=== PATIENT | male | born 1965 | race Caucasian/White ===

== ENCOUNTER → 2018-01-18 | Outpatient (CLI) | payer OTHER ==
[2018-01-18 09:56] LABS: INR 1.2; PROTIME 11.5 Seconds (9.20-11.50)
== END ==
LOC: M.LAB 03:15
PROVIDERS: Anesthesiology
DX: R79.1 Abnormal coagulation profile (principal)

== ENCOUNTER → 2018-08-20 | Outpatient (CLI) | payer OTHER ==
[2018-08-20 14:15] LABS: INR 1.2; PROTIME 11.9 Seconds (9.20-11.50)
== END ==
LOC: M.LAB 01:03
PROVIDERS: Anesthesiology
DX: Z79.01 Long term (current) use of anticoagulants (principal)

== ENCOUNTER → 2019-08-15 | Outpatient (CLI) | payer OTHER ==
[2019-08-15 09:24] LABS: INR 1.2; PROTIME 12.6 Seconds (9.20-11.50)
== END ==
LOC: M.LAB 04:55
PROVIDERS: Anesthesiology
DX: R79.1 Abnormal coagulation profile (principal)

== ENCOUNTER → 2020-05-01 | Outpatient (CLI) | payer OTHER | LOC: M.LAB 15:30 | PROVIDERS: ATTEND Internal Medicine Gastroenterology | DX: Z01.818 Encounter for other preprocedural examination (principal); Z11.59 Encounter for screening for other viral diseases; K51.90 Ulcerative colitis, unspecified, without complications ==

== ENCOUNTER → 2020-05-06 | Outpatient (CLI) | payer OTHER ==
[2020-05-06 08:09] LABS: INR 1.4
== END ==
LOC: M.LAB 03:43
PROVIDERS: ATTEND Anesthesiology
DX: R79.1 Abnormal coagulation profile (principal)